=== PATIENT | female | born 1990 | race Caucasian/White ===

== ENCOUNTER 2021-05-15 13:54 | Emergency (ER) | payer SELFPAY ==
[~2021-05-15] VITALS: Ht 147.3 cm; Wt 68.0 kg
[2021-05-15] MEDS ORDERED: MAGNESIUM/ALUMINUM HYDROXIDE/SIMETHICONE 30ML UDC PO STA (14:21)
[2021-05-15] MEDS ORDERED: VISCOUS LIDOCAINE 2% 15 ML UDC PO STA (14:21)
[2021-05-15] MEDS ORDERED: FAMOTIDINE 20MG TABLET PO ONE (14:30)
[2021-05-15] MEDS ORDERED: IBUP-2028 MT (14:35)
[2021-05-15] MEDS ORDERED: CIPHCO RIGHT EAR (14:35)
[2021-05-15] MEDS ORDERED: AMOX-494 MT (14:35)
[2021-05-15] MEDS ORDERED: FAMO-135 MT (14:35)
[2021-05-15 14:49] LABS: CLARITY URINE CLEAR (CLEAR); COLOR URINE YELLOW (YELLOW); KETONES URINE TRACE (NEGATIVE); LEUKOCYTE ESTERASE URINE TRACE (NEGATIVE); NITRITE URINE NEGATIVE (NEGATIVE); OCCULT BLOOD URINE 1+ (NEGATIVE); PH URINE 5.5 (4.5-8.0); PROTEIN URINE TRACE (NEGATIVE); SPECIFIC GRAVITY URINE 1.026 (1.005-1.030); UROBILINOGEN URINE 0.2 E.U./dL (0.2-1.0)
[2021-05-15 14:53] LABS: CHLORIDE 106 mEq/L (98-107)
[2021-05-15 14:59] LABS: EOSINOPHILS % 0.4 % (0.0-5.0); HEMATOCRIT. 37.9 % (36.0-48.0); HEMOGLOBIN. 13.4 g/dL (12.0-16.0); LYMPHOCYTES % 20.6 % (20.0-50.0); MEAN CORPUSCULAR HEMOGLOBIN 32.2 pg (28.0-32.0); MEAN CORPUSCULAR VOLUME 91.1 fL (81.0-99.0); PLATELET 276 x1000/uL (130-400); RED BLOOD CELL COUNT 4.16 mill/uL (4.2-5.4); RED CELL DISTRIBUTION WIDTH 12.9 % (11.6-14.6)
[2021-05-15] MEDS ORDERED: MAGNESIUM/ALUMINUM HYDROXIDE/SIMETHICONE 30ML UDC PO ONE (15:30)
[2021-05-15] MEDS ORDERED: IBUPROFEN 600MG TABLET PO STA (15:44)
[2021-05-15 17:42] VITALS: BP 113/78
== END 2021-05-15 18:08 | disposition home or self-care (01) ==
LOC: ER 15:47
DX: N39.0 Urinary tract infection, site not specified (principal); H60.8X1 Other otitis externa, right ear; K76.9 Liver disease, unspecified
CPT/HCPCS: 36415; 76705; 80053; 81003; 81025; 85025; 99284